=== PATIENT | female | born 1940 | race Caucasian/White ===

== ENCOUNTER 2018-12-13 06:28 | Day surgery (SDC) | payer MEDICARE ==
[~2018-12-13 06:28] MED LIST: Buffered Lidocaine 1% SYRIN* 1 ML/SYRINGE INTRADERM ONE; Lactated Ringers 1000 ML Bag* 1,000 ML IV SCH
[2018-12-13] MEDS ORDERED: Phenylephrine OPHTH SOL 2.5%* 2 ML ONE (07:30)
[2018-12-13] MEDS ORDERED: BSS OPTH.SOL* BTL ONE (07:30)
[2018-12-13] MEDS ORDERED: Neomycin/Polymy/Dex OPHTH.OIN* 3.5 GM ONE (07:30)
[2018-12-13] MEDS ORDERED: Tetracaine 1%* 2 ML AMP ONE (07:31)
[2018-12-13] MEDS ORDERED: Tetracaine 0.5% OPTH.SOL 4 ML* 1 DROP BTL ONE (07:33)
[2018-12-13] MEDS ORDERED: Lidocaine 2% PF * 5 ML VIAL ONE (07:36)
[2018-12-13] MEDS ORDERED: Propofol* 10 MG/ML 20 ML BTL ONE (07:36)
[2018-12-13] MEDS ORDERED: Midazolam* 1 MG/ML 2 ML VIAL (2 MG) ONE (07:36)
[2018-12-13] MEDS ORDERED: Succinylcholine* 20 MG/ML 10 ML VIAL ONE (07:36)
[2018-12-13] MEDS ORDERED: fentaNYL* 50 MCG/ML 2 ML VIAL (100 MCG VIAL) ONE (08:50)
[2018-12-13] MEDS ORDERED: Ondansetron INJ* 2 MG/ML VIAL ONE (09:04)
[2018-12-13] MEDS ORDERED: Dexamethasone IV* 4 MG/ML 1 ML (4 MG) ONE (09:04)
[2018-12-13] MEDS ORDERED: Ketorolac INJ* 30 MG/ML 1 ML VIAL ONE (09:04)
[2018-12-13] MEDS ORDERED: Naloxone* 0.4 MG/ML 1 ML VIAL IV PRN (09:22)
[2018-12-13] MEDS ORDERED: fentaNYL* 50 MCG/ML 2 ML VIAL (100 MCG VIAL) IV PRN (09:22)
[2018-12-13] MEDS ORDERED: oxyCODONE TAB* 5 MG TAB PO PRN (09:22)
[2018-12-13] MEDS ORDERED: Acetaminophen TAB* 325 MG PO PRN (09:22)
[2018-12-13] MEDS ORDERED: Metoclopramide IV* 5 MG/ML 2 ML VIAL IV PRN (09:22)
[2018-12-13] MEDS ORDERED: EPHEDrine (Pressors)* 50 MG/ML VIAL ONE (09:28)
[2018-12-13 11:54] VITALS: BP 131/50
--- NOTE | 2018-12-13 14:08 | OP ---
DATE OF OPERATION: 12/13/18 [facility] DATE OF : 40 SURGEON: Addy Klein MD QU[employer] M[employer]ER OPERATOR: None. ANESTHESIA: General. PRE-OP DIAGNOSES: 1. 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 2. Graves disease. POST-OP DIAGNOSES: 1. 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 2. Graves disease. OPERATIVE PROCEDURE: Recess each medial rectus muscle 4.5 mm. COMPLICATIONS: None. BLOOD LOSS: None. DESCRIPTION OF PROCEDURE: The patient was brought to the operating room and received general anesthesia. A drop of tetracaine and a drop of phenylephrine were placed in each eye. The patient was prepped in the usual sterile fashion for ophthalmic surgery and attention was directed to the right eye where a speculum was placed. Forced ductions were performed and found to show some resistance to abduction. The conjunctiva was noted to be quite friable. The eye was gently grasped at the limbus in the inferonasal quadrant and brought to superotemporal gaze. An inferonasal fornix incision was created with a Jayleen scissor and Tenon's capsule was violated. The medial rectus muscle was isolated on a Min muscle hook and the conjunctiva was reflected over the surface of the hook. The check ligament was violated. The muscle was cleaned with sharp and blunt dissection near its insertion. A double-armed 6-0 Vicryl suture was woven into the muscle and locked at either end near its insertion. The muscle was disinserted from the globe. The original insertion site was grasped with interrupted locking forceps. A stephany was made on the sclera 4.5 mm posterior to the original insertion. The muscle was recessed to this point. The sutures were tied securely. The locking forceps were removed and gentle cauterization was performed to achieve hemostasis. The conjunctiva was closed with interrupted 6-0 gut sutures. Forced ductions were performed again and appeared to be more normal. The speculum was removed and placed in the patient's left eye. Here, forced ductions were again performed, which exhibited significant restriction on abduction. The same procedure performed that is a 4.5 mm recession of the medial rectus muscle in similar fashion to the other eye. At the end of the case, forced ductions appeared more normal on this eye as well. The eyes appeared straight. The speculum was removed from each eye and topical tetracaine followed by Maxitrol ointment was placed in each eye. The patient was awakened uneventfully and sent to the recovery room in stable condition with postoperative instructions and followup appointment given. [id number]/[facility] #: [id number]
== END 2018-12-13 11:24 | disposition home or self-care (01) ==
LOC: OREAST 06:28
PROVIDERS: ATTEND Ophthalmology
DX: H50.05 Alternating esotropia (principal); E05.90 Thyrotoxicosis, unspecified without thyrotoxic crisis or storm; I10 Essential (primary) hypertension
CPT/HCPCS: A9270-GY; J0330; J1100; J1885; J2250; J2405; J2704; J3010